=== PATIENT | female | born 1955 | race African-American/Black ===

== ENCOUNTER 2020-07-16 20:49 | Emergency (ER) | payer MEDICARE, MEDICAID ==
[~2020-07-16] VITALS: Ht 167.6 cm; Wt 118.0 kg
[~2020-07-16 20:49] MED LIST: HYDR-3282 MT
[2020-07-17] MEDS ORDERED: HYDROCODONE/ACETAMINOPHEN 5/325MG TABLET PO ONE (03:15)
[2020-07-17 04:07] VITALS: BP 152/94
== END 2020-07-17 04:09 | disposition home or self-care (01) ==
LOC: ER 20:49
DX: M54.5 Low back pain (principal); G89.29 Other chronic pain; I11.0 Hypertensive heart disease with heart failure; I50.9 Heart failure, unspecified; J44.9 Chronic obstructive pulmonary disease, unspecified; F11.10 Opioid abuse, uncomplicated; M19.90 Unspecified osteoarthritis, unspecified site; Z86.73 Personal history of transient ischemic attack (TIA), and cerebral infarction without residual deficits; I25.2 Old myocardial infarction; F12.10 Cannabis abuse, uncomplicated
CPT/HCPCS: 99283

== ENCOUNTER 2023-05-09 21:34 | Emergency (ER) | payer MEDICARE, MEDICAID ==
[~2023-05-09] VITALS: Ht 167.6 cm; Wt 116.0 kg
[~2023-05-09 21:34] MED LIST changes: +ASPI-1160 PO; +DOCU250C14 PO; -HYDR-3282 MT; +HYDR-4348 MT; +LIP40 PO; +LOSA-415 PO
[2023-05-09 21:36] VITALS: O2SAT 96
[2023-05-09] MEDS ORDERED: MORPHINE SULFATE 10 MG/ML CPJ IM ONE (22:30)
[2023-05-09 23:20] VITALS: TEMP 98.2
[2023-05-09 23:34] VITALS: BP 152/86; PULSE 86; RESP 16
[2023-05-10] MEDS ORDERED: NAPR-1176 MT (02:23)
== END 2023-05-10 05:20 ==
LOC: ER 21:34
DX: N20.0 Calculus of kidney (principal); J44.9 Chronic obstructive pulmonary disease, unspecified; I11.0 Hypertensive heart disease with heart failure; I50.9 Heart failure, unspecified; I25.2 Old myocardial infarction; Z86.73 Personal history of transient ischemic attack (TIA), and cerebral infarction without residual deficits; Z98.890 Other specified postprocedural states
CPT/HCPCS: 99285; 96372; 74176; J2270